=== PATIENT | female | born 1935 | race Caucasian/White ===

== ENCOUNTER 2022-01-25 08:25 | Emergency (ER) | payer MEDICARE ==
[~2022-01-25] VITALS: Ht 167.6 cm; Wt 72.6 kg
[~2022-01-25 08:25] MED LIST: ASPI-1443 PO; ATOR10 PO; CALC-1009 PO; CEPH500B PO; CHOL100040 PO; CITA10TA89 PO; FAMO20TA8 PO; FISH1CAP49 PO
[2022-01-25] MEDS ORDERED: ORPHENADRINE CITRATE 30 MG/ML ML IVP ONE (09:00)
[2022-01-25] MEDS ORDERED: KETOROLAC 15MG/ML VIAL (15MG/ML) IV ONE (09:00)
[2022-01-25 09:02] LABS: BASOPHILS % (AUTO) 0.6 % (0.0-5.0); EOSINOPHILS % (AUTO) 2.6 % (0.0-8.0); LYMPHOCYTES % (AUTO) 17.2 % (21.0-51.0); MEAN CORPUSCULAR HEMOGLOBIN 29.4 pg (27.0-33.0); MEAN CORPUSCULAR HGB CONC 32.4 g/dL (32.0-36.0); MEAN CORPUSCULAR VOLUME 90.7 fL (79-99); MONOCYTES % (AUTO) 12.1 % (3.0-13.0); NEUTROPHILS % (AUTO) 67.2 % (40.0-77.0); PLATELET COUNT (AUTO) 212 K/uL (130-400); RED BLOOD CELL COUNT(AUTO) 4.52 MIL/uL (4.00-5.50); RED CELL DISTRIBUTION WIDTH 14.6 % (11.0-15.5)
[2022-01-25 09:20] LABS: CREATININE 0.8 mg/dL (0.5-1.5); POTASSIUM 4.8 mmol/L (3.5-5.1)
[2022-01-25 09:24] LABS: ALBUMIN 3.5 g/dL (3.5-5.0); TOTAL PROTEIN, SERUM 6.6 g/dL (6.0-8.3)
[2022-01-25 10:09] LABS: APPEARANCE,URINE CLOUDY (CLEAR); BILIRUBIN,URINE NEGATIVE (NEGATIVE); COLOR,URINE LIGHT-YELLOW (YELLOW); GLUCOSE, URINE (UA) NEGATIVE (NEGATIVE); KETONES,URINE NEGATIVE (NEGATIVE); LEUKOCYTE ESTERASE ,URINE 250 Leu/uL (NEGATIVE); NITRATE,URINE NEGATIVE (NEGATIVE); OCCULT BLOOD,URINE NEGATIVE (NEGATIVE); PH,URINE 7.5 (5.0-8.0); PROTEIN,URINE NEGATIVE (NEGATIVE); UROBILINOGEN,URINE 0.2 mg/dL (0.2-1.0)
[2022-01-25 10:39] LABS: BACTERIA,URINE Moderate /HPF (None Seen); RBC,URINE 0-1 /HPF (0-1); SQUAMOUS EPITHELIAL CELL,UR Moderate /HPF (0-2)
[2022-01-25 11:38] VITALS: BP 113/47
[2022-01-25] MEDS ORDERED: TRAM50TA4 PO (12:01)
[2022-01-25] MEDS ORDERED: TIZA4CAP8 PO (12:01)
== END 2022-01-25 12:24 | disposition home or self-care (01) ==
LOC: EDH 08:25
DX: M54.50 Low back pain, unspecified (principal); R19.00 Intra-abdominal and pelvic swelling, mass and lump, unspecified site; M19.90 Unspecified osteoarthritis, unspecified site; G30.9 Alzheimer's disease, unspecified; Z79.899 Other long term (current) drug therapy; Z79.82 Long term (current) use of aspirin
CPT/HCPCS: 99285; 74176; 96374; 96375; 84484; 80053; 83690; 85025; 87088; 81001; 36415; 93005; J1885; J2360

== ENCOUNTER 2022-01-28 09:38 | Observation (INO) | payer MEDICARE ==
[~2022-01-28] VITALS: Ht 152.4 cm; Wt 77.8 kg
[~2022-01-28 09:38] MED LIST changes: +TIZA4CAP8 PO; +TRAM50TA4 PO
[2022-01-28 10:06] LABS: BASOPHILS % (AUTO) 0.4 % (0.0-5.0); EOSINOPHILS % (AUTO) 1.8 % (0.0-8.0); HEMATOCRIT 42.7 % (36-48); LYMPHOCYTES % (AUTO) 16.2 % (21.0-51.0); MEAN CORPUSCULAR HGB CONC 31.1 g/dL (32.0-36.0); MONOCYTES % (AUTO) 9.4 % (3.0-13.0); NEUTROPHILS % (AUTO) 71.9 % (40.0-77.0); PLATELET COUNT (AUTO) 225 K/uL (130-400); RED BLOOD CELL COUNT(AUTO) 4.59 MIL/uL (4.00-5.50); RED CELL DISTRIBUTION WIDTH 14.6 % (11.0-15.5); WHITE BLOOD COUNT (AUTO) 7.9 K/uL (4.8-10.8)
[2022-01-28 10:12] LABS: CREATININE 0.9 mg/dL (0.5-1.5); POTASSIUM 4.3 mmol/L (3.5-5.1)
[2022-01-28 10:17] LABS: ALBUMIN 3.5 g/dL (3.5-5.0); TOTAL PROTEIN, SERUM 6.7 g/dL (6.0-8.3)
[2022-01-28 12:47] LABS: APPEARANCE,URINE CLEAR (CLEAR); BILIRUBIN,URINE NEGATIVE (NEGATIVE); COLOR,URINE YELLOW (YELLOW); GLUCOSE, URINE (UA) NEGATIVE (NEGATIVE); KETONES,URINE NEGATIVE (NEGATIVE); LEUKOCYTE ESTERASE ,URINE 250 Leu/uL (NEGATIVE); NITRATE,URINE NEGATIVE (NEGATIVE); PH,URINE 5.5 (5.0-8.0); PROTEIN,URINE NEGATIVE (NEGATIVE); UROBILINOGEN,URINE 0.2 mg/dL (0.2-1.0)
[2022-01-28 12:52] LABS: BACTERIA,URINE RARE /HPF (None Seen); MUCUS,URINE RARE LPF (None Seen); SQUAMOUS EPITHELIAL CELL,UR MOD /HPF (0-2)
[2022-01-28] MEDS ORDERED: 0.9% NACL 250ML 250 ML IV ONE (13:00)
[2022-01-28] MEDS ORDERED: MORPHINE 2 MG SYG IVP ONE (13:00)
[2022-01-28] MEDS ORDERED: ONDANSETRON 4MG INJ IVP ONE (13:00)
[2022-01-28] MEDS ORDERED: NITROGLYCERIN 0.4 MG SL TAB SL PRN (15:00)
[2022-01-28] MEDS ORDERED: DiphenhydrAMINE HCL 50 MG/ML VIAL IV PRN (15:00)
[2022-01-28] MEDS ORDERED: MAGNESIUM 2GM PREMIX 50ML 50 ML IV PRN (15:00)
[2022-01-28] MEDS ORDERED: KCL 20 MEQ ERTAB PO PRN (15:00)
[2022-01-28] MEDS ORDERED: POTASSIUM CHLORIDE 20MEQ/100ML 100 ML IV PRN (15:00)
[2022-01-28] MEDS ORDERED: ONDANSETRON 4MG INJ IV PRN (15:00)
[2022-01-28] MEDS ORDERED: POTASSIUM CHLORIDE 10% ELIXIR 20 MEQ/15 ML UDCUP PO PRN (15:00)
[2022-01-28] MEDS ORDERED: KETOROLAC 15MG/ML VIAL (15MG/ML) IV PRN (15:00)
[2022-01-28] MEDS ORDERED: GUAIFENESIN-DM 200/20 MG 10 ML PO PRN (15:00)
[2022-01-28] MEDS ORDERED: ACETAMINOPHEN 325 MG TAB PO PRN ×2 (15:00)
[2022-01-28] MEDS ORDERED: HYDROCODONE/ACETAMINOPHEN 5/325 MG TAB PO PRN (15:00)
[2022-01-28] MEDS ORDERED: MAG/ALUM/SIMETH 30 ML UDCUP PO PRN (15:00)
[2022-01-28] MEDS ORDERED: LIDOCAINE HCL-MPF 1% 2ML VIAL IV PRN (15:00)
[2022-01-28] MEDS ORDERED: HYDROCODONE/ACETAMINOPHEN 7.5/325 MG TAB PO PRN (15:00)
[2022-01-28] MEDS ORDERED: DIPHENHYDRAMINE HCL 25 MG CAPSULE PO PRN (15:00)
[2022-01-28] MEDS: FAMOTIDINE 20MG TAB PO SCH (16:22)
[2022-01-28] MEDS: LACTATED RINGERS 1000ML 1,000 ML IV SCH ×2 (16:23→23:20)
[2022-01-28] MEDS ORDERED: FAMOTIDINE 20MG VIAL IV SCH (21:00)
[2022-01-28 22:35] VITALS: BP 148/72
[2022-01-29 04:00] VITALS: BP 137/61
[2022-01-29 05:31] LABS: BASOPHILS % (AUTO) 0.6 % (0.0-5.0); EOSINOPHILS % (AUTO) 2.4 % (0.0-8.0); LYMPHOCYTES % (AUTO) 16.8 % (21.0-51.0); MEAN CORPUSCULAR HEMOGLOBIN 29.2 pg (27.0-33.0); MEAN CORPUSCULAR VOLUME 91.3 fL (79-99); MONOCYTES % (AUTO) 12.4 % (3.0-13.0); NEUTROPHILS % (AUTO) 67.5 % (40.0-77.0); PLATELET COUNT (AUTO) 218 K/uL (130-400); RED BLOOD CELL COUNT(AUTO) 4.38 MIL/uL (4.00-5.50); RED CELL DISTRIBUTION WIDTH 14.5 % (11.0-15.5); WHITE BLOOD COUNT (AUTO) 6.7 K/uL (4.8-10.8)
[2022-01-29 05:52] LABS: CREATININE 0.7 mg/dL (0.5-1.5); POTASSIUM 3.7 mmol/L (3.5-5.1)
[2022-01-29 08:00] VITALS: BP 143/67
[2022-01-29] MEDS: FAMOTIDINE 20MG TAB PO SCH (08:37)
[2022-01-29] MEDS: ENOXAPARIN SODIUM 40 MG/0.4 ML SYRINGE SQ SCH (08:37)
[2022-01-29 12:00] VITALS: BP 135/71
[2022-01-29] MEDS: LACTULOSE 20 GM/30 ML UDCUP PO PRN ×2 (12:11→17:36)
[2022-01-29] MEDS ORDERED: TIZANIDINE HCL 2 MG TABLET PO PRN (15:00)
[2022-01-29 16:00] VITALS: BP 137/97
[2022-01-29] MEDS: LACTATED RINGERS 1000ML 1,000 ML IV SCH ×3 (16:00→20:53)
[2022-01-29] MEDS ORDERED: MEMA28CA16 PO (19:24)
[2022-01-29] MEDS ORDERED: OMEP20CA12 PO (19:24)
[2022-01-29 20:00] VITALS: BP 165/72
[2022-01-30] VITALS (7 sets, daily range): BP systolic 99–184; BP diastolic 43–84
[2022-01-30 05:13] LABS: BASOPHILS % (AUTO) 0.4 % (0.0-5.0); EOSINOPHILS % (AUTO) 1.7 % (0.0-8.0); HEMATOCRIT 37.9 % (36-48); LYMPHOCYTES % (AUTO) 14.1 % (21.0-51.0); MEAN CORPUSCULAR HEMOGLOBIN 29.3 pg (27.0-33.0); MEAN CORPUSCULAR HGB CONC 32.2 g/dL (32.0-36.0); MEAN CORPUSCULAR VOLUME 91.1 fL (79-99); MONOCYTES % (AUTO) 9.9 % (3.0-13.0); NEUTROPHILS % (AUTO) 73.7 % (40.0-77.0); PLATELET COUNT (AUTO) 207 K/uL (130-400); RED BLOOD CELL COUNT(AUTO) 4.16 MIL/uL (4.00-5.50); RED CELL DISTRIBUTION WIDTH 14.5 % (11.0-15.5); WHITE BLOOD COUNT (AUTO) 9.2 K/uL (4.8-10.8)
[2022-01-30 05:27] LABS: CREATININE 0.8 mg/dL (0.5-1.5)
[2022-01-30] MEDS: FAMOTIDINE 20MG TAB PO SCH (09:53)
[2022-01-30] MEDS: ENOXAPARIN SODIUM 40 MG/0.4 ML SYRINGE SQ SCH (09:53)
[2022-01-30] MEDS: LACTATED RINGERS 1000ML 1,000 ML IV SCH ×2 (10:26→17:17)
[2022-01-30] MEDS ORDERED: DIATR MEGLU/DIATRIZOATE SODIUM 30 ML BOTTLE ONE (11:29)
[2022-01-30] MEDS ORDERED: IOHEXOL 350 MG/ML 100ML INFUS..BTL IV ONE (15:42)
[2022-01-31] MEDS: LACTATED RINGERS 1000ML 1,000 ML IV SCH (01:20)
[2022-01-31 04:45] VITALS: BP 152/67
[2022-01-31 05:08] LABS: BASOPHILS % (AUTO) 0.4 % (0.0-5.0); EOSINOPHILS % (AUTO) 2.5 % (0.0-8.0); HEMATOCRIT 39.5 % (36-48); LYMPHOCYTES % (AUTO) 21.3 % (21.0-51.0); MEAN CORPUSCULAR HEMOGLOBIN 28.7 pg (27.0-33.0); MEAN CORPUSCULAR HGB CONC 31.6 g/dL (32.0-36.0); MEAN CORPUSCULAR VOLUME 90.6 fL (79-99); NEUTROPHILS % (AUTO) 61.7 % (40.0-77.0); PLATELET COUNT (AUTO) 232 K/uL (130-400); RED BLOOD CELL COUNT(AUTO) 4.36 MIL/uL (4.00-5.50); RED CELL DISTRIBUTION WIDTH 14.6 % (11.0-15.5); WHITE BLOOD COUNT (AUTO) 7.1 K/uL (4.8-10.8)
[2022-01-31 05:20] LABS: CREATININE 0.7 mg/dL (0.5-1.5); MAGNESIUM 1.9 mg/dL (1.80-2.40); POTASSIUM 4.2 mmol/L (3.5-5.1)
[2022-01-31 07:07] VITALS: BP 118/53
[2022-01-31] MEDS ORDERED: MEMANTINE HCL 28 MG PO SCH (09:00)
[2022-01-31] MEDS: ENOXAPARIN SODIUM 40 MG/0.4 ML SYRINGE SQ SCH (09:28)
[2022-01-31] MEDS: FAMOTIDINE 20MG TAB PO SCH (09:28)
[2022-01-31] MEDS ORDERED: ATORVASTATIN 10 MG TABLET PO SCH (21:00)
== END 2022-01-31 12:30 | disposition home or self-care (01) ==
LOC: EDH 09:38 → EDHIP 14:51 → INTOOBSV 14:51 → 3AH 22:35
PROVIDERS: ADMIT Internal Medicine; ATTEND Internal Medicine
DX: R10.32 Left lower quadrant pain (principal); R19.00 Intra-abdominal and pelvic swelling, mass and lump, unspecified site; G30.9 Alzheimer's disease, unspecified; F02.80 Dementia in other diseases classified elsewhere, unspecified severity, without behavioral disturbance, psychotic disturbance, mood disturbance, and anxiety; E78.5 Hyperlipidemia, unspecified; F17.200 Nicotine dependence, unspecified, uncomplicated; N94.89 Other specified conditions associated with female genital organs and menstrual cycle; M19.90 Unspecified osteoarthritis, unspecified site; E66.9 Obesity, unspecified; M25.552 Pain in left hip; M79.662 Pain in left lower leg; Z79.899 Other long term (current) drug therapy; Z98.890 Other specified postprocedural states; Z79.82 Long term (current) use of aspirin; Z68.33 Body mass index [BMI] 33.0-33.9, adult
CPT/HCPCS: 96374; 96375; 99284; 80053; 85025 ×4; 81001; 36415 ×4; 76856; 96372 ×3; 80048 ×3; 73502; 73562; 97161; 97116 ×2; 74177; 97039; 83735; J2405; J7050; J7120 ×5; J1650 ×3; G0378 ×25; Q9963; Q9967; 96361

== ENCOUNTER → 2022-02-13 | Outpatient (CLI) | payer MEDICARE ==
[~2022-02-13] MED LIST changes: -CALC-1009 PO; -CEPH500B PO; -CHOL100040 PO; -FAMO20TA8 PO; -FISH1CAP49 PO; +GADOTERATE MEGLUMINE 10 MMOL/20 ML VIAL IV ONE; +MEMA28CA16 PO; +OMEP20CA12 PO; -TIZA4CAP8 PO; -TRAM50TA4 PO
== END | disposition home or self-care (01) ==
LOC: RAH 11:49
PROVIDERS: ATTEND Internal Medicine Hematology & Oncology
DX: N83.201 Unspecified ovarian cyst, right side (principal)
CPT/HCPCS: 72197; A9575

== ENCOUNTER 2024-04-10 08:50 | Emergency (ER) | payer MEDICARE, OTHER ==
[~2024-04-10] VITALS: Ht 149.9 cm; Wt 60.8 kg
[~2024-04-10 08:50] MED LIST changes: -GADOTERATE MEGLUMINE 10 MMOL/20 ML VIAL IV ONE
[2024-04-10 09:17] LABS: APPEARANCE,URINE CLEAR (CLEAR); BILIRUBIN,URINE NEGATIVE (NEGATIVE); COLOR,URINE YELLOW (YELLOW); GLUCOSE, URINE (UA) NEGATIVE (NEGATIVE); KETONES,URINE NEGATIVE (NEGATIVE); LEUKOCYTE ESTERASE ,URINE 500 Leu/uL (NEGATIVE); NITRATE,URINE NEGATIVE (NEGATIVE); OCCULT BLOOD,URINE SMALL (NEGATIVE); PROTEIN,URINE NEGATIVE (NEGATIVE); UROBILINOGEN,URINE 0.2 mg/dL (0.2-1.0)
[2024-04-10 09:44] LABS: ADD UA MICROSCOPIC YES
[2024-04-10 09:48] LABS: BACTERIA,URINE FEW /HPF (None Seen); CALCIUM OXALATE CRYSTALS,UR RARE /LPF (None Seen); MUCUS,URINE RARE LPF (None Seen); SQUAMOUS EPITHELIAL CELL,UR FEW /HPF (0-2)
[2024-04-10] MEDS: morPHINE 4 MG SYG IVP ONE (10:17)
[2024-04-10 10:20] LABS: HEMATOCRIT 46.3 % (36-48); MEAN CORPUSCULAR HEMOGLOBIN 30.3 pg (27.0-33.0); MEAN CORPUSCULAR HGB CONC 31.5 g/dL (32.0-36.0); MEAN CORPUSCULAR VOLUME 96.1 fL (79-99); PLATELET COUNT (AUTO) 274 K/uL (130-400); RED BLOOD CELL COUNT(AUTO) 4.82 MIL/uL (4.00-5.50); RED CELL DISTRIBUTION WIDTH 14.2 % (11.0-15.5); WHITE BLOOD COUNT (AUTO) 10.2 K/uL (4.8-10.8)
[2024-04-10 10:25] LABS: CREATININE 0.9 mg/dL (0.5-1.0); POTASSIUM 4.5 mmol/L (3.5-5.1)
--- NOTE | 2024-04-10 10:48 | ERN ---
ED Note History of Present Illness Stated Complaint: BACK PAIN Chief Complaint: Back Pain-No Injury Time Seen by MD: 08:53 Dictation: This 88-year-old female with mild dementia presents in the emergency department with onset of plate like pain across the sacroiliac area one week ago that has gotten quite a bit more severe in the last 24 hours so that is interfering with sleep and activities of daily living. Patient has not had trauma. She denies associated fever. It is not lateralizing and nonradiating. There was no distal weakness numbness or tingling in her legs and she has no bowel or bladder complaints. There was no numbness in the perineal area. She has use Tylenol for pain which has not been helpful. She did have pretty severe back pain once a couple of years ago and she was hospitalized at the time because a cyst was seen in pelvis. They advised me that narcotics were not very helpful for the pain at that time. The cyst was evaluated by a admissions dean and felt to most likely represent a benign lesion. The family states that the cyst resolved. Patient lives at home with family. Her only other medical problem is arthritis. She is a former smoker but does not currently smoke or use alcohol. Most the time she is very active playing table tennis and water volleyball but has not been able to do so for the last few days because of pain Allergies: Coded Allergies: No Known Drug Allergies (Unverified Allergy, 10/08/12) Home Meds Active Scripts Atorvastatin Calcium (LIPITOR) 10 Mg Tab, 10 MG PO HS, #30 TAB 3 Refills Prov:NORA PERKINS MD 06/21/15 Reported Medications Omeprazole (Omeprazole) 20 Mg Capsule., 20 MG PO DAILY, CAP 01/29/22 Memantine HCl (Memantine HCl ER) 28 Mg Cap.spr.24, 28 MG PO DAILY, CAP 01/29/22 Citalopram Hydrobromide (Citalopram HBr) 10 Mg Tablet, 10 MG PO HS, TAB 06/14/15 Aspirin (Aspirin EC) 81 Mg Tablet.dr, 81 MG PO HS, TAB 06/14/15 Past Medical History Past Medical History: Other Additional Past Medical Hx: ALZHEIMERS Surgical History: None Family History: Negative Social History: Negative, Other RN Note Reviewed/Agreed w/PFSH: Yes Review of System Dictation All pertinent systems reviewed, negative except as documented in the HPI The ROS is obtained from patient. Her memory appears adequate to the task GENERAL/CONSTITUTIONAL: Negative except as documented in HPI. ENT: Negative except as documented in HPI. CARDIOVASCULAR: Negative except as documented in HPI. RESPIRATORY: Negative except as documented in HPI. GASTROINTESTINAL: Negative except as documented in HPI. GENITOURINARY: Negative except as documented in HPI. MUSCULOSKELETAL: Negative except as documented in HPI. SKIN: Negative except as documented in HPI. NEUROLOGIC: Negative except as documented in HPI. Initial Vital Sign VS Vital Signs Date Time Temp Pulse Resp B/P (MAP) Pulse Ox O2 Delivery O2 Flow Rate FiO2 04/10/24 08:50 97.9 88 17 128/47 98 Room Air 0 04/10/24 08:59 21 Physical Exam Dictation VITAL SIGNS: note is made of triage vital signs CONSTITUTIONAL: This is an uncomfortable, slender, elderly patient who is awake, alert, and appropriately interactive. HEAD: Normocephalic, Atraumatic. EYES: Periorbital areas with no swelling, redness, or edema. Lids and lashes are normal. Conjunctival injection is absent. Sclera anicteric. Pupils equal, round, reactive to light. ENT: No nasal discharge noted. Posterior pharynx is without exudate, redness, swelling, masses, or evidence of obstruction. Uvula midline. Mucous membranes moist. NECK: Trachea midline, no masses palpated, and no cervical lymphadenopathy. No swelling. Supple, full range of motion without nuchal rigidity. No vertebral point tenderness. No meningismus. CHEST/AXILLA: Normal chest wall appearance and motion. No tenderness. No crepitus. CV: Normal rate, regular rhythm. No murmur. No edema. RESPIRATORY:Respiratory rate is normal. Bilateral equal breath sounds with good airflow. Normal breath sounds are noted. No rales, rhonchi or wheezes noted. No increased work of breathing, no retractions. ABDOMEN: Inspection normal. No distention is appreciated. Bowel sounds are normal. No mass or organomegaly is appreciated. There is no tenderness. No rebound. No rigidity. No voluntary or involuntary guarding. BACK: Inspection is normal. She is uncomfortable moving around. Palpation reveals discomfort in the bony structures of the lower lumbar spine and upper sacral area. There was no perineal numbness : No CVA tenderness or bladder tenderness. SKIN: Warm, dry, with normal turgor. Capillary refill less than 3 seconds. Normal color.No rash. No cellulitis or abscess. No evidence of acute injury. MS/Extremity: There is no calf tenderness. Baseline range of motion is noted in all 4 extremities. There are no deformities. NEURO: Awake and alert, lucid. Facies symmetric and speech is clear. Motor strength 5/5 in all extremities. Sensory grossly intact. PSYCH: Patient is appropriately attentive and cooperative without evidence of hallucination. Results (Laboratory/Radiology) Laboratory/Radiology Laboratory Tests Test 04/10/24 09:02 04/10/24 10:00 Urine Color YELLOW (YELLOW) Urine Appearance CLEAR (CLEAR) Urine pH 6.0 (5.0-8.0) Urine Specific Wayne 1.023 (1.001-1.031) Urine Protein NEGATIVE mg/dL (NEGATIVE) Urine Glucose (UA) NEGATIVE mg/dL (NEGATIVE) Urine Ketones NEGATIVE mg/dL (NEGATIVE) Urine Occult Blood SMALL (NEGATIVE) H Urine Nitrate NEGATIVE (NEGATIVE) Urine Bilirubin NEGATIVE mg/dL (NEGATIVE) Urine Urobilinogen 0.2 mg/dL (0.2-1.0) Urine Leukocyte Esterase 500 Tracy/uL (NEGATIVE) H Urine RBC 6-10 /HPF (0-1) H Urine WBC 2-5 /HPF (0-1) H Urine Squamous Epithelial Cells FEW /HPF (0-2) Urine Calcium Oxalate Crystals RARE /LPF (None Seen) Urine Bacteria FEW /HPF (None Seen) White Blood Count 10.2 K/uL (4.8-10.8) Red Blood Count 4.82 MIL/uL (4.00-5.50) Hemoglobin 14.6 g/dL (12.0-16.0) Hematocrit 46.3 % (36-48) Mean Corpuscular Volume 96.1 fL (79-99) Mean Corpuscular Hemoglobin 30.3 pg (27.0-33.0) Mean Corpuscular Hemoglobin Concent 31.5 g/dL (32.0-36.0) L Red Cell Distribution Width 14.2 % (11.0-15.5) Platelet Count 274 K/uL (130-400) Mean Platelet Volume 9.3 fL (7.5-10.5) Segmented Neutrophils % 74 % (40-70) H Lymphocytes % (Manual) 15 % (22-44) L Monocytes % (Manual) 11 % (2-9) H Nucleated Red Blood Cells 0.0 % (0.0-0.19) Differential Comment MANUAL DIFFERENTIAL White Cell Morphology Comment Platelet Morphology Comment ADEQUATE Red Blood Cell Morphology See comments Sodium Level 139 mmol/L (136-145) Potassium Level 4.5 mmol/L (3.5-5.1) Chloride Level 103 mmol/L (101-111) Carbon Dioxide Level 34 mmol/L (21-32) H Blood Urea Nitrogen 22 mg/dL (7-18) H Creatinine 0.9 mg/dL (0.5-1.0) Glomerular Filtration Rate Calc 62 mL/min (>90) Random Glucose 90 mg/dL (70-105) Total Calcium 9.3 mg/dL (8.5-10.1) C-Reactive Protein, Quantitative 0.90 mg/L (0.5-3.0) Labs Reviewed?: Yes CT Scan Comment: Institution : [facility] Accession No. : [id number] Patient : GURMEET Hernandez Creator : Sadi Leonard Dictator : Sadi Leonard Negative Cutter : Flatbed Driver : SADI LEONARD Approver2 : Study : CT ABDOMEN/PELVIS W/CONTRAST Study Date : 04/10/2024 11:30:28 Report Date : 04/10/2024 12:01:56 [address] [address] [place] [address] IMAGING REPORT Signed PATIENT: FABY LEVI MR#: [id number] : 1935 SEX: F AGE: 88 LOCATION: [facility] ORDER [id number] STATUS: REG REPORT#: [id number] SERVICE 1116 REASON: low back pain, h/o pelvic Cyst ORDERING PHYSICIAN: DANETTE BRADLEY MD PROCEDURE: ABD PEL W - CT ABDOMEN/PELVIS W/CONTRAST CT ABDOMEN/PELVIS W/CONTRAST HISTORY: Back pain COMPARISON: 01/30/2022 TECHNIQUE: Multiple sequential axial images of the abdomen and pelvis were obtained from the dome of the diaphragm through symphysis pubis. Patient was given 75 cc of Omnipaque through intravenous route. Oral contrast was not given. FINDINGS: No pleural effusion is seen bilaterally. There is no evidence of parenchymal disease or pulmonary nodule of the visualized lower lungs. Degenerative changes of the thoracolumbar spine are present. The heart is not enlarged. Liver measured 14 cm. Gallbladder is distended with septation. Stomach is poorly distended with wall thickening. There are motion artifacts degrading the image quality. There is right adnexal cystic mass measuring 6.7 x 8.8 cm in the right posterior pelvis may be related to ovarian cyst versus cystic neoplasm of ovary. There is diverticulosis. The liver, spleen, adrenal glands and pancreas are unremarkable. There is no evidence of hydronephrosis bilaterally. No evidence of renal stone is seen. Fecal material is seen in the colon. There are normal size retroperitoneal and mesenteric lymph nodes. No ascites is seen. Atherosclerotic changes are present. Pelvic sidewalls are symmetric bilaterally. Bladder is poorly distended. IMPRESSION: 1. There are motion artifacts degrading the image quality. There is right adnexal cystic mass measuring 6.7 x 8.8 cm in the right posterior pelvis may be related to ovarian cyst versus cystic neoplasm of ovary. This was seen on previous study. There is diverticulosis. Gallbladder is distended. Stomach is poorly distended. CT was performed with one or more following dose reduction techniques: automated exposure control, adjustment of the mA and kv according to patient's size, or use of a iterative reconstruction technique. DICTATED BY: SADI LEONARD MD DATE: 04/10/24 1158 ELECTRONICALLY SIGNED BY: SADI LEONARD MD DATE: 04/10/24 1204 ED Course ED Course Orders Procedure Category Date Status Time Urinalysis Profile LAB 04/10/24 Complete 09:03 Culture Urine ZEENAT 04/10/24 In Process 09:44 Cbc W Manual Diff LAB 04/10/24 Complete 09:44 Basic Metabolic Panel LAB 04/10/24 Complete 09:44 Crp Quantitative LAB 04/10/24 Complete 09:44 Morphine 4mg Syg PHA 04/10/24 Complete (Morphine 4mg Syg) 10:00 Ct Abdomen/Pelvis CT 04/10/24 Resulted W/Contrast 11:16 Iohexol (Omnipaque) PHA 04/10/24 Complete 11:23 Current Medications Medications (Trade) Dose Ordered Sig/Tony Route PRN Reason Start Time Stop Time Status Last Admin Dose Admin Iohexol (Omnipaque) 75 ml STK-MED ONCE IV 04/10/24 11:23 04/10/24 11:23 DC Morphine Sulfate (morPHINE 4MG SYG) 4 mg ONCE ONCE IVP 04/10/24 10:00 04/10/24 10:01 DC 04/10/24 10:17 Vital Signs Date Time Temp Pulse Resp B/P (MAP) Pulse Ox O2 Delivery O2 Flow Rate FiO2 04/10/24 12:22 72 14 110/41 98 Room Air* 0 04/10/24 10:18 65 14 124/53 99 Room Air* 0 04/10/24 08:59 97.9 88 16 128/47 98 Room Air* 0 04/10/24 08:50 97.9 88 17 128/47 98 Room Air 0 Medical Decision Making MDM INITIAL IMPRESSION Initial history and physical concerning for musculoskeletal back pain but patient's advanced age and history of pelvic cyst raised some concerns Contributing medical problems: Mild Alzheimer's, pelvic cyst, arthritis I have reviewed the triage nursing notes and vital signs. The patient is afebrile with acceptable oxygen saturation, heart rate and blood pressure. Initial plan: Pain medication laboratory screening DATA REVIEW I have reviewed additional NN, repeat VS, and monitoring where indicated. Heart rate, blood pressure, and O2 saturation are acceptable. Santiago diagnostic results: White count is normal although there are 74% segmented neutrophils. Hemoglobin is normal. Chemistries are normal with the exception of a bicarb of 34 and a BUN of 22 and a creatinine of 0.9. Calcium is 9.3. CRP is normal CT was reviewed. The size of the cyst appears to be stable based upon previous evaluation done in 2021. There was no acute bony abnormality reported Other independent historian: Patient's spouse Review of external data: Previous hospitalization and reports of the CT sonogram and MRI from 2021 ED COURSE Interventions: Patient received a small dose of morphine with good relief resolution of pain Reassessment: She is eating happily and feels comfortable going home DISPOSITION Final diagnostic impression: Acute musculoskeletal low back pain, Labs do not suggest an acute inflammatory or malignant process and CT appears stable I discussed my findings, clinical impression and treatment recommendations with the patient. I have reviewed the social factors contributing to the patient's presentation and disposition planning. My final plan for disposition was made based upon clinical findings, response to treatment and discussion with the patient regarding management options. Hospitalization is not indicated due to low risk of short term progression, complication, morbidity or mortality related to the current diagnosis At the time of discharge, the vital signs are within acceptable limits. Repeat examination: Much more comfortable Patient has been able to take oral liquids. The discharge treatment plan includes gentle narcotic therapy for 48 hours Also recommended localized anti-inflammatory cream such as Rigoberto-Jackson or icy hot Incidental findings discussed: I did advise the family that I still see the cyst on the CT scan Questions were invited and answered in layman's terms. I have emphasized my follow-up recommendations and reviewed ED return precautions. I have answered any questions in layman's terms. The patient understands that they will have to arrange for out-patient follow-up for recheck of today's condition. The patient is stable and appropriate for discharge from the ED. This dictation was prepared using [employer] voice recognition software. Occasional voice recognition errors may occur. When identified, these errors have been corrected. While every attempt is made to correct errors during dictation, errors may still exist. DX & DISP Disposition: Discharge Decision to Admit Date: Apr 10, 2024 Decision to Admit Time: 14:10 Departure Impression: Primary Impression: Acute low back pain Additional Impression: Pelvic mass in female Condition: Stable Scripts Acetaminophen with Codeine (Acetaminophen-Cod #3 Tablet) 300 Mg-30 Mg Tablet 1 TAB PO Q4H PRN for PAIN, #15 TAB Prov: DANETTE BRADLEY MD 04/10/24 Additional Instructions: Use the Tylenol codeine one tablet every 4-6 hours as needed for pain. It can cause constipation. It is sedating. Do not mix with alcohol or other sedating drugs. Do not drive or operate heavy machinery for 6 hours after taking this medication. Transition to plain Tylenol as soon as possible. Activity as tolerated by pain If you are not much better in 48 hours follow up with your primary care physician for further management. Return to the emergency department for fever or loss of function in your bowels, bladder or legs. Use a local pain cream such as icy hot or Rigoberto-Jackson over the affected area Referrals: MARTINE PACE MD (PCP) DANETTE BRADLEY MD Apr 10, 2024 10:48
[2024-04-10] MEDS ORDERED: IOHEXOL-350 75 ML VIAL IV ONE (11:23)
[2024-04-10 11:49] LABS: LYMPHOCYTES % (MANUAL) 15 % (22-44); MONOCYTES % (MANUAL) 11 % (2-9); SEGMENTED NEUTROPHILS % 74 % (40-70); TOTAL CELLS COUNTED 100
[2024-04-10 11:50] LABS: MAN.DIFF COMMENT-IMPRESSION MANUAL DIFFERENTIAL; PLATELET MORPHOLOGY COMMENT ADEQUATE
--- NOTE | 2024-04-10 12:04 | HMCIMG ---
CT ABDOMEN/PELVIS W/CONTRAST HISTORY: Back pain COMPARISON: 01/30/2022 TECHNIQUE: Multiple sequential axial images of the abdomen and pelvis were obtained from the dome of the diaphragm through symphysis pubis. Patient was given 75 cc of Omnipaque through intravenous route. Oral contrast was not given. FINDINGS: No pleural effusion is seen bilaterally. There is no evidence of parenchymal disease or pulmonary nodule of the visualized lower lungs. Degenerative changes of the thoracolumbar spine are present. The heart is not enlarged. Liver measured 14 cm. Gallbladder is distended with septation. Stomach is poorly distended with wall thickening. There are motion artifacts degrading the image quality. There is right adnexal cystic mass measuring 6.7 x 8.8 cm in the right posterior pelvis may be related to ovarian cyst versus cystic neoplasm of ovary. There is diverticulosis. The liver, spleen, adrenal glands and pancreas are unremarkable. There is no evidence of hydronephrosis bilaterally. No evidence of renal stone is seen. Fecal material is seen in the colon. There are normal size retroperitoneal and mesenteric lymph nodes. No ascites is seen. Atherosclerotic changes are present. Pelvic sidewalls are symmetric bilaterally. Bladder is poorly distended. IMPRESSION: 1. There are motion artifacts degrading the image quality. There is right adnexal cystic mass measuring 6.7 x 8.8 cm in the right posterior pelvis may be related to ovarian cyst versus cystic neoplasm of ovary. This was seen on previous study. There is diverticulosis. Gallbladder is distended. Stomach is poorly distended. CT was performed with one or more following dose reduction techniques: automated exposure control, adjustment of the mA and kv according to patient's size, or use of a iterative reconstruction technique.
[2024-04-10] MEDS ORDERED: ACET-2079 PO (14:15)
[2024-04-10 14:46] VITALS: BP 122/49; PULSE 70; RESP 16; TEMP 97.9; O2SAT 98
== END 2024-04-10 14:47 | disposition home or self-care (01) ==
LOC: EDH 08:50
DX: M54.50 Low back pain, unspecified (principal); N94.89 Other specified conditions associated with female genital organs and menstrual cycle; R19.01 Right upper quadrant abdominal swelling, mass and lump; F02.A0 Dementia in other diseases classified elsewhere, mild, without behavioral disturbance, psychotic disturbance, mood disturbance, and anxiety; G30.9 Alzheimer's disease, unspecified; Z79.82 Long term (current) use of aspirin; Z79.899 Other long term (current) drug therapy
CPT/HCPCS: 99285; 74177; 96374; 80048; 85025; 87086; 86140; 81001; 36415; J2270; Q9967

== ENCOUNTER 2024-04-21 15:55 | Emergency (ER) | payer OTHER ==
[~2024-04-21] VITALS: Ht 162.6 cm; Wt 60.3 kg
[~2024-04-21 15:55] MED LIST changes: +ACET-2079 PO
[2024-04-21] MEDS ORDERED: VALA100031 PO (16:38)
[2024-04-21] MEDS ORDERED: CAPS42.514 TP (16:49)
[2024-04-21] MEDS ORDERED: PRED10TA3 PO (16:49)
[2024-04-21] MEDS ORDERED: PRED20TA3 PO (16:49)
--- NOTE | 2024-04-21 17:01 | ERN ---
ED Note History of Present Illness Stated Complaint: PIMPLE/BUMP TO RT SIDE OF FOREHAD Chief Complaint: Wound Check Time Seen by MD: 16:04 Dictation: Patient is a 88-year-old female with past medical history of dementia, Alzheimer's came to the ED with chief complaint of lesion on her right side of forehead since 1 week. Patient says that the lesion is very painful and tender and does not drain any pus or blood. She tried applying mupirocin with no relief. Allergies: Coded Allergies: No Known Drug Allergies (Unverified Allergy, 10/08/12) Home Meds Active Scripts Capsaicin (Capsaicin) 0.1 % Cream..g., 42.5 GM TP BID, #1 Prov:TAMANNA DE LA FUENTE MD 04/21/24 Prednisone (Prednisone) 20 Mg Tablet, 40 MG PO DAILY for 6 Days, #6 TAB Take 40 mg daily for the first 6 days Take 20 mg daily for next 3 days Take 10 mg daily for next 3 days Prov:TAMANNA DE LA FUENTE MD 04/21/24 Prednisone (Prednisone) 20 Mg Tablet, 20 MG PO DAILY for 3 Days, #3 TAB Prov:TAMANNA DE LA FUENTE MD 04/21/24 Prednisone (Prednisone) 10 Mg Tablet, 10 MG PO DAILY for 3 Days, #3 TAB Prov:TAMANNA DE LA FUENTE MD 04/21/24 Valacyclovir HCl (Valacyclovir) 1,000 Mg Tablet, 1000 MG PO TIDMEALS for 7 Days, #21 TAB Prov:TAMANNA DE LA FUENTE MD 04/21/24 Acetaminophen with Codeine (Acetaminophen-Cod #3 Tablet) 300 Mg-30 Mg Tablet, 1 TAB PO Q4H PRN for PAIN, #15 TAB Prov:DANETTE BRADLEY MD 04/10/24 Atorvastatin Calcium (LIPITOR) 10 Mg Tab, 10 MG PO HS, #30 TAB 3 Refills Prov:NORA PERKINS MD 06/21/15 Reported Medications Omeprazole (Omeprazole) 20 Mg Capsule.dr, 20 MG PO DAILY, CAP 01/29/22 Memantine HCl (Memantine HCl ER) 28 Mg Cap.spr.24, 28 MG PO DAILY, CAP 01/29/22 Citalopram Hydrobromide (Citalopram HBr) 10 Mg Tablet, 10 MG PO HS, TAB 06/14/15 Aspirin (Aspirin EC) 81 Mg Tablet.dr, 81 MG PO HS, TAB 06/14/15 Past Medical History Past Medical History: Dementia, Other Additional Past Medical Hx: ALZHEIMERS Surgical History: None Family History: Negative Social History: Negative, Other Review of System Dictation Constitutional-no chills, weight loss/gain, fever Eyes-no injury, pain, redness and discharge ENT-no injury, pain, swelling Cardiovascular no chest pain, palpitations, edema Respiratory no shortness of breath, cough, wheezing Abdomen/GI-no abdominal pain, diarrhea, constipation, vomiting, nausea Back no injury and pain Genitourinary no injury, bleeding and discharge Musculoskeletal/extremities no injury, deformity Skin no rash, discoloration . Rash over right side of forehead is painful and tender Neuro-no headache, weakness, numbness, tingling, seizures, tremors Psych-no suicidal ideation, homicidal ideation, hallucinations, depression, anxiety, memory loss Initial Vital Sign VS Vital Signs Date Time Temp Pulse Resp B/P (MAP) Pulse Ox O2 Delivery O2 Flow Rate FiO2 04/21/24 15:58 98.1 71 16 151/73 Room Air 0 04/21/24 17:37 98 21 Physical Exam Dictation General-patient is awake alert and oriented Head/neck-normocephalic, atraumatic . Rash on right side forehead Eyes-PERRL, EOMI, vision at baseline Neck-trachea midline, supple, no nuchal rigidity Cardiovascular-RRR, normal S1/S2, no MRG is, no JVD Respiratory-no distress, wheezing, rales, rhonchi Abdomen-no tenderness, guarding, soft, nondistended Skin warm, dry, normal turgor, no rash Musculoskeletal/extremities pulses equal, no cyanosis Neuro-COA X 4, GCS 15, strength 5/5, CN 2-12 intact Psych-normal behavior, mood and affect normal ED Course ED Course Medical Decision Making MDM INITIAL IMPRESSION Initial history and physical concerning for shingles Contributing medical problems: None I have reviewed the triage nursing notes and vital signs. Initial plan: Discharge with Prescription DATA REVIEW I have reviewed additional NN, repeat VS, and monitoring where indicated. Heart rate, blood pressure, and O2 saturation are acceptable. ED COURSE Interventions: None Reassessment: Not indicated DISPOSITION Final diagnostic impression: Shingles I discussed my findings, clinical impression and treatment recommendations with the patient. My final plan for disposition was made based upon -mild risk of complications and potential morbidity of the patient's condition. -Discussion with the patient regarding management options. Patient will be discharged with medication DX & DISP Disposition: Discharge Departure Impression: Primary Impression: Shingles Condition: Stable Scripts Capsaicin (Capsaicin) 0.1 % Cream..g. 42.5 GM TP BID, #1 Prov: TAMANNA DE LA FUENTE MD 04/21/24 Prednisone (Prednisone) 20 Mg Tablet 40 MG PO DAILY for 6 Days, #6 TAB Take 40 mg daily for the first 6 days Take 20 mg daily for next 3 days Take 10 mg daily for next 3 days Prov: TAMANNA DE LA FUENTE MD 04/21/24 Prednisone (Prednisone) 20 Mg Tablet 20 MG PO DAILY for 3 Days, #3 TAB Prov: TAMANNA DE LA FUENTE MD 04/21/24 Prednisone (Prednisone) 10 Mg Tablet 10 MG PO DAILY for 3 Days, #3 TAB Prov: TAMANNA DE LA FUENTE MD 04/21/24 Valacyclovir HCl (Valacyclovir) 1,000 Mg Tablet 1000 MG PO TIDMEALS for 7 Days, #21 TAB Prov: TAMANNA DE LA FUENTE MD 04/21/24 Additional Instructions: Come to the ED if you have any acute or emergency symptoms Take your medicines exactly as prescribed. Call your doctor or nurse advice line if you think you are having a problem with your medicine. Antiviral medicine he lps you get better faster and may help prevent later problems. Try not to scratch or pick at the blisters. Keep the blisters moist until they heal over. One way to do this is to cover them with a thin layer of petroleum jelly, such as Vaseline, and a non-stick bandage. Take an xsxh-ewt-[id number] pain medicine, such as acetaminophen (Tylenol), ibuprofen (Advil, Motrin), or naproxen (Aleve). Read and follow all instructions on the label. Avoid close contact with people until the blisters have healed. It is very important for you to avoid contact with anyone who has never had chickenpox or the chickenpox vaccine. Young babies and anyone who is or has a hard time fighting infection (such as someone with HIV, diabetes, or cancer) are especially at risk. Take steroid medication as prescribed 40 mg daily for 6 days 20 mg daily for 3 days 10 mg daily for 10 days Referrals: DAKOTA HOWARD MD (PCP) Time of Disposition: 17:00 I have reviewed I have reviewed the case I was present and participated in the care of this patient alongside the resident physician. I have reviewed and personally made and improve the management plan that is documented in the note by myself or the resident physician. I acknowledge full responsibility for the patient's management plan. I have examined patient TAMANNA DE LA FUENTE MD Apr 21, 2024 17:00 TRISTA MINOR MD Apr 26, 2024 17:24
[2024-04-21 17:37] VITALS: BP 150/70; PULSE 70; RESP 16; TEMP 98; O2SAT 98
== END 2024-04-21 17:46 | disposition home or self-care (01) ==
LOC: EDH 15:55
DX: B02.9 Zoster without complications (principal); F02.80 Dementia in other diseases classified elsewhere, unspecified severity, without behavioral disturbance, psychotic disturbance, mood disturbance, and anxiety; G30.9 Alzheimer's disease, unspecified; Z79.82 Long term (current) use of aspirin; Z79.899 Other long term (current) drug therapy
CPT/HCPCS: 99283

== ENCOUNTER → 2024-04-28 | Outpatient (CLI) | payer OTHER ==
[~2024-04-28] MED LIST changes: +CAPS42.514 TP; +PRED10TA3 PO; +PRED20TA3 PO; +VALA100031 PO
--- NOTE | 2024-04-28 13:04 | HMCIMG ---
CT HEAD/BRAIN W/O CONTRAST HISTORY: Injury COMPARISON: None TECHNIQUE: Multiple sequential axial images of the head were obtained from the base of the skull through vertex. Patient was not given contrast through intravenous route. FINDINGS: The ventricles and extraventricular CSF spaces are dilated consistent with cerebral atrophy. Nonspecific white matter changes seen. Bilateral basal ganglia calcifications are seen. There is no midline shift, mass effect or herniation. No acute intracranial bleed is seen. Visualized portion of the paranasal sinuses are grossly within normal limits. IMPRESSION: 1. No acute intracranial bleed is seen. 2. Atrophy with white matter changes. CT was performed with one or more following dose reduction techniques: automated exposure control, adjustment of the mA and kv according to patient's size, or use of a iterative reconstruction technique.
== END | disposition home or self-care (01) ==
LOC: RAH 10:30
PROVIDERS: ATTEND Family Medicine
DX: S09.90XA Unspecified injury of head, initial encounter (principal); G31.89 Other specified degenerative diseases of nervous system; R90.82 White matter disease, unspecified; X58.XXXA Exposure to other specified factors, initial encounter; Y93.89 Activity, other specified; Y92.89 Other specified places as the place of occurrence of the external cause; Y99.8 Other external cause status
CPT/HCPCS: 70450

== ENCOUNTER 2025-02-22 18:00 | Emergency (ER) | payer OTHER ==
[~2025-02-22] VITALS: Ht 162.6 cm; Wt 64.4 kg
--- NOTE | 2025-02-22 18:36 | ERN ---
General Chief Complaint: Mechanical Fall Stated Complaint: FALL Time Seen by MD: 18:04 Source: patient History of Present Illness Initial Comments Patient is a an 89-year-old female brought in by son due to patient falling of her bed. Per patient and son patient landed in the right knee and hit herself in the left upper arm. She did not lose consciousness. Allergies: Coded Allergies: No Known Drug Allergies (Unverified Allergy, 10/08/12) Home Meds Active Scripts Capsaicin (Capsaicin) 0.1 % Cream..g., 42.5 GM TP BID, #1 Prov:TAMANNA DE LA FUENTE MD 04/21/24 Prednisone (Prednisone) 20 Mg Tablet, 40 MG PO DAILY for 6 Days, #6 TAB Take 40 mg daily for the first 6 days Take 20 mg daily for next 3 days Take 10 mg daily for next 3 days Prov:TAMANNA DE LA FUENTE MD 04/21/24 Prednisone (Prednisone) 20 Mg Tablet, 20 MG PO DAILY for 3 Days, #3 TAB Prov:TAMANNA DE LA FUENTE MD 04/21/24 Prednisone (Prednisone) 10 Mg Tablet, 10 MG PO DAILY for 3 Days, #3 TAB Prov:TAMANNA DE LA FUENTE MD 04/21/24 Valacyclovir HCl (Valacyclovir) 1,000 Mg Tablet, 1000 MG PO TIDMEALS for 7 Days, #21 TAB Prov:TAMANNA DE LA FUENTE MD 04/21/24 Acetaminophen with Codeine (Acetaminophen-Cod #3 Tablet) 300 Mg-30 Mg Tablet, 1 TAB PO Q4H PRN for PAIN, #15 TAB Prov:DANETTE BRADLEY MD 04/10/24 Atorvastatin Calcium (LIPITOR) 10 Mg Tab, 10 MG PO HS, #30 TAB 3 Refills Prov:NORA PERKINS MD 06/21/15 Reported Medications Omeprazole (Omeprazole) 20 Mg Capsule.dr, 20 MG PO DAILY, CAP 01/29/22 Memantine HCl (Memantine HCl ER) 28 Mg Cap.spr.24, 28 MG PO DAILY, CAP 01/29/22 Citalopram Hydrobromide (Citalopram HBr) 10 Mg Tablet, 10 MG PO HS, TAB 06/14/15 Aspirin (Aspirin EC) 81 Mg Tablet.dr, 81 MG PO HS, TAB 06/14/15 Past Medical History Past Medical History: Dementia Medical History Other: ALZHEIMERS Past Surgical History: None Family History Family History: Negative Social History Social History: Negative, Other ROS Dictation For has been CONSTITUTIONAL: No chills, no fever, no weakness, no diaphoresis, no malaise. HEAD/FACE: No signs of trauma. EENT: No eye pain, no blurred vision, no tearing, no double vision, no ear pain, no ear discharge, no nose pain, no nasal congestion, no throat pain, no throat swelling, no mouth pain. RESPIRATORY: No cough, no orthopnea, no SOB, no stridor, no wheezing. CARDIOVASCULAR: No chest pain, no edema, no palpitations, no syncope. GASTROINTESTINAL/ABDOMINAL: No abdominal pain, no constipation, no diarrhea, no nausea, no vomiting. GENITOURINARY: No abnormal discharge, no dysuria, no frequent urination, no hematuria. No complaints of pain in the genitals. MUSCULOSKELETAL: No back pain, no gout, joint pain, no joint swelling, muscle pain, no muscle stiffness, no neck pain. INTEGUMENTARY: No change in color, no change in hair/nails, no dryness, lesion, no lumps, no rash. NEUROLOGICAL/PSYCH: No anxiety, not depressed, no emotional problem, no headache, no numbness, no pre-existing deficit, no history of seizures, no tremors, no weakness. HEMATOLOGIC/LYMPHATIC: Not anemic, no history of blood clots, no apparent bleeding, no bruising, glands not swollen. All Systems Negative, Except as Noted. Physical Exam Physical Exam Dictation VITAL SIGNS: Reviewed. GENERAL APPEARANCE: Alert, oriented x3, no acute distress, obese. HEAD AND FACE: Non-traumatic. EYES: PERRL, pink conjunctivas, eyelid no trauma, anterior chamber clear. EARS: Pinnas intact and no signs of trauma or erythema. Ear canals clear and no discharge. TMs no erythema. NOSE: No discharge, no bleeding. OROPHARYNX: Mouth normal, teeth no caries, tongue pink. Pharynx clear, no eryt philipp. Tonsils no exudates, no abscesses noted. Mucous membrane moist. NECK: Supple, non-tender, no thyromegaly, no masses, no JVD, no bruits. BREAST: Deferred. CHEST: No tenderness, no crepitus, no paradoxical movement, no retractions. LUNGS: Clear, well-ventilated, symmetric, no rales, no wheezing, no rhonchi, no stridor, good breath sounds bilaterally. HEART: Regular rate, regular rhythm, no murmur, no gallops. VASCULAR: No peripheral edema. ABDOMEN: Soft, positive bowel sounds, nondistended, no guarding, nontender, no rebound, no masses no hepatomegaly, no splenomegaly, no Junior's sign, no hernias. RECTAL: Deferred. GENITAL: Deferred. NEUROLOGICAL: Normal speech, gross motor function intact, gross sensory function intact. MUSCULOSKELETAL: Neck nontender, full range of motion, back nontender, full range of motion. EXTREMITIES: Nontender, full range of motion. SKIN: Color pink, dry, no turgor, no rash, no lacerations, no abrasions, no contusions. LYMPHATICS: Deferred. Results Laboratory and Microbiology Labs Reviewed?: Yes EKG/XRAY/US/CT/MRI X-RAY Comment REASON: fall ORDERING PHYSICIAN: TRISTA MINOR MD PROCEDURE: KNEE 3V RT - KNEE 3VWS RT EXAM: CR Right Knee, 3 views. CLINICAL HISTORY: Fall. COMPARISON: None provided. FINDINGS: Mild osteopenia. Mild tricompartmental osteoarthritic changes in the knee joint, more prominent in the medial tibiofemoral and patellofemoral joint. No acute fracture or aggressive appearing osseous lesion. There is no joint effusion appreciated. The soft tissues are unremarkable. IMPRESSION: No acute osseous abnormality. Mild tricompartmental osteoarthritic changes in the knee joint are more prominent in the medial tibiofemoral and patellofemoral joints. /[place] DICTATED BY: AMBER MAS Jr., MD DATE: 02/22/252234 [facility] MDM: Differential diagnosis: Right knee contusion, skin tear Rationale: Tests considered and ordered secondary to shared decision making include: Previous outside records reviewed: Old ER visits. Risk of complication and/or morbidity or mortality of patient management: None Medications-Per medication reconciliation Need for hospitalization: Patient does not meet criteria for hospitalization. Need for emergency major/minor surgery: No There are no social concerns with this patient. Prescription drug management Prescriptions will include symptomatic care Patient's prior external medical records from other ER visits were reviewed by me as indicated. Prior testing and results from previous visits were reviewed. Prior tests were taken into account with medical decision making and resource utilization, independent historian/historians were used to obtain complete medical history. I independently interpreted the test that were performed, results were reviewed by me and considered findings on radiology if ordered. Medical management and examination interpretation discussions were had by me with other qualified healthcare professionals as indicated for the patient's care. ED Course Orders Procedure Category Date Status Time Knee 3vws Rt RAD 02/22/25 Resulted 18:10 Humerus 2+Vws Lt RAD 02/22/25 Resulted 18:10 Tetanus,Diphtheria PHA 02/22/25 Complete Tox [Adult] (Diphther 18:30 Dermabond (Dermabond) PHA 02/22/25 Complete 21:44 Dermabond (Dermabond) PHA 02/22/25 Complete 21:46 Current Medications Medications (Trade) Dose Ordered Sig/Tony Route PRN Reason Start Time Stop Time Status Last Admin Dose Admin Octyl Cyanoacrylate (Dermabond) 1 each STK-MED ONCE TP 02/22/25 21:44 02/22/25 21:44 DC Octyl Cyanoacrylate (Dermabond) 1 each STK-MED ONCE TP 02/22/25 21:46 02/22/25 21:46 DC Tetanus/ Diphtheria Toxoids Adsorbed (DiphthERIA-teTANUS TOXOID [ADULT]/ DECAVAC) 0.5 ml ONCE ONCE IM 02/22/25 18:30 02/22/25 18:31 DC 02/22/25 20:17 Vital Signs Date Time Temp Pulse Resp B/P (MAP) Pulse Ox O2 Delivery O2 Flow Rate FiO2 02/22/25 19:31 99.1 98 18 113/68 98 Room Air* 0 21 02/22/25 18:05 99.3 121 18 111/67 97 Room Air* 0 21 02/22/25 18:01 99.3 121 18 113/67 97 Room Air 0 7:00 p.m. patient was signed out to me by a.m. physician. X-rays of the left upper extremity humerus and knee were pending at the time of sign-out 9:00 p.m. x-rays are still pending 9:50 p.m. I re-evaluated the patient. I went over finally the x-rays that were resulted with the patient and son and there is no evidence of any acute fracture. Patient's son is the caregiver and he finally decided to take her care the primary care physician for any other needs. Her left arm superficial laceration has been repaired Laceration/Wound Repair Laceration/Wound Repair : Wound Location: upper extremity Wound Length (cm): 12 Wound's Depth, Shape: superficial, nail-avulsed, contused tissue Wound Explored: contaminated Irrigated w/ Saline (ccs): 15 Betadine Prep?: Yes Wound Debrided: minimal Wound Repaired With: Dermabond Sterile Dressing Applied?: Yes DX & DISP Disposition: Discharge Departure Impression: Primary Impression: Fall from standing Additional Impressions: Laceration of left upper arm, Arthritis of left knee, Contusion of left knee, Alzheimer's dementia Condition: Stable Additional Instructions: Patient and the caregiver have been informed of all the diagnostic tests and the imaging conducted during the today's visit to the emergency room and has verbalized understanding of the results I have personally reviewed and interpr eted all diagnostic exams performed here in the ER today as well as the vital signs documented by the nursing staff. The patient is now being discharged to home and should follow up with the primary care physician or the specialist as directed by the ER staff. Patient to follow up with her primary care physician Referrals: ADKOTA HOWARD MD (PCP) TRISTA MINOR MD Feb 22, 2025 18:36 KATE DERAS MD Feb 22, 2025 21:49
--- NOTE | 2025-02-22 21:26 | HMCIMG ---
EXAM: CR right Humerus, 2 View. CLINICAL HISTORY: fall COMPARISON: None provided. FINDINGS: BONES: No acute fracture or aggressive appearing osseous lesion. JOINTS: No dislocation. The joint spaces are normal. SOFT TISSUES: The soft tissues are unremarkable. IMPRESSION: No acute osseous abnormality. /[place]
--- NOTE | 2025-02-22 21:35 | HMCIMG ---
EXAM: CR Right Knee, 3 views. CLINICAL HISTORY: Fall. COMPARISON: None provided. FINDINGS: Mild osteopenia. Mild tricompartmental osteoarthritic changes in the knee joint, more prominent in the medial tibiofemoral and patellofemoral joint. No acute fracture or aggressive appearing osseous lesion. There is no joint effusion appreciated. The soft tissues are unremarkable. IMPRESSION: No acute osseous abnormality. Mild tricompartmental osteoarthritic changes in the knee joint are more prominent in the medial tibiofemoral and patellofemoral joints. /[place]
[2025-02-22] MEDS: OCTYL 2-CYANOACRYLATE 1 EACH TP ONE ×3 (21:53→21:59)
[2025-02-22 21:55] VITALS: BP 108/66; PULSE 88; RESP 18; TEMP 99; O2SAT 99
== END 2025-02-22 22:00 | disposition home or self-care (01) ==
LOC: EDH 18:00
DX: S41.112A Laceration without foreign body of left upper arm, initial encounter (principal); S80.02XA Contusion of left knee, initial encounter; M17.0 Bilateral primary osteoarthritis of knee; G30.9 Alzheimer's disease, unspecified; F02.80 Dementia in other diseases classified elsewhere, unspecified severity, without behavioral disturbance, psychotic disturbance, mood disturbance, and anxiety; Z79.52 Long term (current) use of systemic steroids; Z79.82 Long term (current) use of aspirin; Z79.899 Other long term (current) drug therapy; W06.XXXA Fall from bed, initial encounter; Y93.89 Activity, other specified; Y92.89 Other specified places as the place of occurrence of the external cause; Y99.8 Other external cause status
CPT/HCPCS: 12004; 73060; 73562; 90471; 90714; 99284